=== PATIENT | male | born 1945 | race Caucasian/White ===

== ENCOUNTER 2017-12-09 21:58 | Inpatient (IN) | payer MEDICARE ==
[~2017-12-09] VITALS: Ht 165.1 cm; Wt 96.1 kg
--- NOTE | ~2017-12-09 | EC ---
PATIENT:KARL MARIANO DATE OF SERVICE: 12/09/17 SEX: M MEDICAL RECORD: [id number] DATE OF : 41 LOCATION:D.M2 D.211 AGE OF PATIENT: 72 ADMISSION DATE: 12/09/17 REFERRING PHYSICIAN: INTERPRETING PHYSICIAN: CATARINA MILLER MD ECHOCARDIOGRAM REPORT ECHO CHARGES 4 ECHO COMPLETE Date: 12/10/17 CLINICAL DIAGNOSIS: NONSTEMI ECHOCARDIOGRAPHIC MEASUREMENTS (adult normal given) AC root (d.<3.7cm) 2.7 cm LV Septum d (<1.2 cm> 1.4 cm Valve Excursion 0.8 cm LV Septum (systole) 1.8 cm Left Atria (s.<4.0cm> 4.2 cm LVPW d(<1.2cm) 0.7 cm RV (d.<2.3cm) 2.9 cm LVPW (sytole) 0.9 cm LV diastole(<5.6CM) 5.2 cm MV E-F(>70mm/sec) cm LV systole 4.0 cm LVOT Diameter 1.5 cm MV exc.(>10mm) cm Est.ejection fraction (50-75%) % DOPPLER: LVIT cm/sec A 116 cm/sec E 116 cm/sec LA cm/sec RVSP 43.6 mmHg LVOT 71 cm/sec AOP1/2T m/s Asc. Ao 323 cm/sec RVOT 54 cm/sec RA cm/sec PA 67 cm/sec AV Gradient Peak 41.8 mmHg AV Mean 33.5 mmHg AV Area 0.3 cm MV Gradient Peak 7.2 mmHg MV Mean 3.7 mmHg MV Area cm COMMENTS: Commercial Census Taker: Babs [facility] Backside Grinder: 1 Dr. Miller TAPE# PACS Pericardial Effusion N DATE OF SERVICE: 12/10/2017 PROCEDURE: Echocardiogram. FINDINGS: 1. Left ventricular chamber size is within normal limits. Left ventricular systolic function is normal. Overall ejection fraction estimated at 50%. 2. Left atrium is enlarged at 4.2 cm. Right atrium and right ventricular chamber sizes are within normal limits. 3. Valvular structures have normal structure and motion. ECHOCARDIOGRAM REPORT [id number] KARL MARIANO 4. Doppler interrogation reveals mild mitral regurgitation, [id number] tricuspid regurgitation, no other valvular insufficiency or stenosis. Pulmonary systolic pressure is estimated at 44 mmHg. 5. No evidence of pericardial effusion or left ventricular thrombus. TRANSINT:[id number] Voice Confirmation ID: [id number] DOCUMENT ID: [id number] CATARINA MILLER MD at 1059 CC: [id number] DICTATION DATE: 12/10/171840 RECOVERY ADVOCATE: 12/10/172052 DIS IN 12/12/[address] [facility] [address] [id number]
--- NOTE | ~2017-12-09 | MORECARE ---
CASE MANAGEMENT DISCHARGE SUMMARY PATIENT: KARL MARIANO UNIT: [id number] ADM DATE: 12/09/17 AGE: 72 : 43 SEX: M ROOM/BED: D.6710 AUTHOR: MARY,DOC PHYSICIAN: REFERRING PHYSICIAN: CATARINA CEVALLOS MD DATE OF SERVICE: 12/13/17 Discharge Plan Patient Name: KARL MARIANO [facility]:[place] : 1945 Planned Disposition: Home Anticipated Discharge Date: 12/12/17 Discharge Date: 12/12/2017 Expected LOS: 3 Initial Reviewer: [email or web address] Initial Review Date: 12/11/2017 Generated: 12/13/17 12:32 pm Comments DCP- Discharge Planning Updated by [email or web address]: Abimbola Peterson on 12/11/17 7:[address] Patient Name: KARL MARIANO Admission Status: ER Accout number: [id number] Admission Date: 12-09-2017 : 1945 Admission Diagnosis: Attending: JENNIFER CEVALLOS Current LOS: 2 Anticipated DC Date: 12-13-2017 Planned Disposition: Home Primary Insurance: MEDICARE A & B Discharge Planning Comments: CM MET WITH PATIENT AND (LOLITA) REGARDING D/C NEEDS AND PLANS. NURSE WAS ATTENDING PATIENT AND CM SPOKE WITH . STATED SHE WILL DRIVE HIM HOME AT DISCHARGE. THERE ARE 3 STEPS TO ENTER HOME WITH A HANDRAIL AND A SMALL STEPDOWN IN THE HOME. PATIENT IS INDEPENDENT WITH HIS CARE AND HAS A GLUCOMETER AND BP MACHINE AT HOME. PATIENTS PCP IS DR. DORA ALONZO IN [place] AND PHARMACY IS [facility]. HOME HEALTH WAS REFUSED AT THIS TIME BUT STATED IF PATIENTS CONDITION CHANGED SHE WOULD NOTIFY CM FOR HOME HEALTH NEEDS. CM WILL CONTINUE TO FOLLOW PATIENT WITH D/C NEEDS AND PLANS. IMM SERVED PCP DR. DORA ALONZO [facility] LOLITA MARIANO () [phone] Drupal Php Developer: Abimbola Peterson DCPIA - Discharge Planning Initial Assessment Updated by [email or web address]: Abimbola Peterson on 12/11/17 8:24 am * Is the patient Alert and Oriented? Yes * How many steps to enter\exit or inside your home? * PCP DR. DORA ALONZO IN [place] * Pharmacy [facility] * Preadmission Environment Other * Other Environment WAS WITH FRIENDS PER (MEN TRIP) * ADLs Independent * Equipment Glucometer * Other Equipment BP MACHINE * List name and contact numbers for known caregivers / representatives who currently or will assist patient after discharge: LOLITA MARIANO () [phone] (CELL) * Verbal permission to speak to the caregivers and representatives has been obtained from the patient. Yes * Community resources currently utilized None * Additional services required to return to the preadmission environment? Yes * Can the patient safely return to the preadmission environment? Yes * Has this patient been hospitalized within the prior 30 days at any hospital? No Coverage Notice Reviewer: [email or web address] Xmiena Peterson Notice Issued Date-Time: 12/11/2017 7:56 Notice Type: IM Discharge Notice Notice Delivered To: Family Member Relationship to Patient: Spouse [employer] Supervisor Name: LOLITA MARIANO Delivery Method: HAND - Hand Delivered Vesna Days: Prior Verbal Notification: Recipient Understood Notice: Yes Recipient Signature: Yes Med Rec Note Co-signed by Attending: Coverage Notice Comment: Last DP export: 12/11/17 7:31 a Patient Name: KARL MARIANO Page 81577 at 1133 All edits/amendments must be made on the electronic document DICTATION DATE: 12/13/171131 PIG HANDLER: KARISHMA 12/13/171131 RPT#: [id number] DC DATE:12/12/17 STATUS: DIS IN [facility] [address] [place] [address] END OF REPORT
--- NOTE | ~2017-12-09 | HEMODYNAMI ---
PATIENT:KARL MARIANO MEDICAL RECORD: [id number] : [birth year] LOCATION:[facility] [place] [address] [id number] ADMISSION DATE: 12/09/17 Generatedon:12/11/201710:09 Patient name: KARL MARIANO Patient #: [id number] SSN: : 1945 Date of study: 12/11/2017 Page: Of Hemodynamic Procedure Report Patient Data Patient Demographics Procedure consent was obtained First Name: KARL Gender: Male Last Name: GARCÍA : 1945 Patient #: [id number] Age: 72 year(s) Race: Unknown Additional ID: [id number] Contact details Address: [address] [place] [address] State: [facility]: [place] Zip code: [address] Past Medical History Allergies: No known allergies Admission Admission Data Admission Date: 12/09/2017 Admission Time: 23:56 Admit Source: Other Room #: D.[facility] Lab Results Lab Result Date: 12/09/2017 Lab Result Time: 22:33 Biochemistry Name Units Result Min Max BUN mg/dl 44 --(----)-* 7 18 Creatinine mg/dl 2.6 --(----)-* 0.6 1.3 CBC Name Units Result Min Max Hematocrit % 34.9 *-(----)-- 42 54 Hemoglobin g/dl 11.9 *-(----)-- 13.5 17.5 Procedure Procedure Types Cath Procedure Diagnostic Procedure LHC Coronaries only FFR/IVUS Intra-Coronary IVUS Initial Sedation Charges Moderate Sedation up to 15 minutes PCI Procedure Coronary Stent Coronary Stent Initial x2 Procedure Description Procedure Date Procedure Date: 12/11/2017 Procedure Start Time: 9:47 Procedure End Time: 10:08 Procedure Staff Name Function Cristiano Miller MD Performing Physician Mark Conner RT Monitor Diya Encinas RT Scrub Nico Saavedra RN Gas Scrubber Operator Janet Mcintosh RN Nurse Procedure Data Cath Procedure Fluoroscopy Diagnostic fluoroscopy Total fluoroscopy Time: 5.5 time: 5.5 min min Diagnostic fluoroscopy Total fluoroscopy dose: 692 dose: 692 mGy mGy Contrast Material Contrast Material Type Amount (ml) Isovue 300 48 Entry Location Entry Primary Successful Side Size Upsize Upsize Entry Closure Succes sful Closure Location (Fr) 1 (Fr) 2 (Fr) Remarks Device Remarks Femoral Right 5 Fr 6 Fr Exoseal artery Short Estimated blood loss: 10 ml Diagnostic catheters Device Type Used For End Catheter Placement MULTIPACK JL 4.0 5Fr Procedure catheter MULTIPACK 3DRC 5Fr Procedure catheter MULTIPACK Pigtail 5 Fr Procedure catheter Procedure Complications No complications Procedure Medications Medication Administration Route Dosage 0.9% NaCl I.V. 100 ml/hr Oxygen etCO2 Nasal cannula 2 l/min Lidocaine 2% added to field 20 Heparin Flush Bag added to field 2 bags (1000units/500ml NS) Plavix P.O. 75 mg Versed I.V. 2 mg Fentanyl I.V. 50 mcg Heparin Bolus I.V. 4000 units Hemodynamics Rest HGB: 11.9 (g/dl) Heart Rate: 97 (bpm) Snapshots Pre Cath Intra NCS Post Cath Vital Signs Time Heart Resp SPO2 etCO2 NIBP Rhythm Pain Sedation Rate (ipm) (%) (mmHg) (mmHg) Status Level (bpm) 9:17:56 107 14 93 30 108/73(86) ST 0 (11) 10(A) , No pain 9:22:04 103 14 96 22.5 120/76(99) ST 0 (11) 10(A) , No pain 9:26:16 99 22 92 31.5 104/68(82) NSR 0 (11) 10(A) , No pain 9:30:26 97 21 94 31.5 107/67(83) NSR 0 (11) 10(A) , No pain 9:34:34 97 22 94 27 104/66(82) NSR 0 (11) 10(A) , No pain 9:38:44 97 22 94 14.2 105/65(81) NSR 0 (11) 10(A) , No pain 9:42:53 97 21 95 27 100/62(80) NSR 0 (11) 10(A) , No pain 9:47:01 101 26 96 32.3 104/69(86) ST 0 (11) 9(A) , No pain 9:51:11 100 23 96 33 107/67(82) NSR 0 (11) 9(A) , No pain 9:55:23 98 21 95 22.5 102/61(79) NSR 0 (11) 9(A) , No pain 9:59:33 99 21 96 33 109/67(83) NSR 0 (11) 9(A) , No pain 10:03:43 100 23 98 33.8 111/70(89) NSR 0 (11) 10(A) , No pain 10:07:53 107 26 98 27 119/74(93) NSR 0 (11) 10(A) , No pain Medications Time Medication Route Dose Verified Delivered Reason Notes Effectiveness by by 9:23:48 0.9% NaCl I.V. 100 Cristiano Janet used for ml/hr Angela Mcintosh stonemason helper 9:23:55 Oxygen etCO2 2 Cristiano Janet used for Nasal l/min Angela Mcintosh procedure cannula RN 9:24:00 Lidocaine 2% added 20ml Cristiano Cristiano for local to vial Angela Miller MD anesthetic field 9:24:05 Heparin Flush added 2 Cristiano Cristiano used for Bag to bags Angela Miller MD procedure (1000units/500ml field NS) 9:24:14 Plavix P.O. 75 mg Cristiano Janet for Angela Mcintosh antiplatelet RN therapy 9:43:32 Versed I.V. 2 mg Cristiano Janet for sedation Angela Mcintosh RN 9:43:39 Fentanyl I.V. 50 Cristiano Janet for sedation mcg Angela Mcintosh RN 9:51:26 Heparin Bolus I.V. 4000 Cristiano Janet for verifi ed units Angela Mcintosh anticoagulation with Dr. MEL Miller Procedure Log Time Note 9:06:26 Informed consent obtained and on chart 9:06:29 Admit Source: Other 9:06:46 Diagnostic Cath status Elective 9:06:48 Nico Saavedra RN sent for patient. Start room use. 9:06:49 Time tracking: Regular hours (M-F 7:00 - 5:00) 9:06:52 Plan of Care:Hemodynamics will remain stable., Cardiac rhythm will remain stable., Comfort level will be maintained., Respiratory function will remain adequate., Patient/ family verbilizes understanding of procedure., Procedure tolerated without complication., Recovers from procedure without complications.. 9:09:45 H&P Date Dictated: 12/09/2017 Within 30 days and on chart.. 9:11:20 Lab Result : BUN 44 mg/dl 9::20 Lab Result : Creatinine 2.6 mg/dl 9::20 Lab Result : Hematocrit 34.9 % 9::20 Lab Result : Hemoglobin 11.9 g/dl 9:11:23 Lab results completed and on chart. 9:11:29 Patient allergic to No known allergies 9:11:35 Patient received from Med II to CCL 1 Alert and oriented. Tansferred to table in Supine position. 9:11:36 Warm blankets applied, and blayne hugger turned on for patient comfort. 9:11:36 Correct patient and procedure confirmed by team. 9:11:37 ECG and BP/O2 sat monitors applied to patient. 9:11:38 Pre-procedure instructions explained to patient. 9:11:38 Pre-op teaching completed and patient verbalized understanding. 9:16:50 Vital chart was started 9:23:48 0.9% NaCl 100 ml/hr I.V. was administered by Janet Mcintosh RN; used for procedure; 9:23:55 Oxygen 2 l/min etCO2 Nasal cannula was administered by Janet Mcintosh RN; used for procedure; 9:24:00 Lidocaine 2% 20ml vial added to field was administered by Cristiano Miller MD; for local anesthetic; 9:24:05 Heparin Flush Bag (1000units/500ml NS) 2 bags added to field was administered by Cristiano Miller MD; used for procedure; 9:24:14 Plavix 75 mg P.O. was administered by Janet Mcintosh RN; for antiplatelet therapy; 9:28:44 Baseline sample Acquired. 9:28:49 Rhythm: sinus tachycardia 9:28:50 Full Disclosure recording started 9:29:00 Family in patients room. 9:29:02 Patient NPO since Midnight. 9:29:05 Is the patient allergic to Iodine/contrast media? No. 9:29:06 Is patient on blood thinner?Yes 9:29:09 ACC The patient was administered the following blood thiners within the last 24 hours: ACCPlavix 9:29:11 Patient diabetic? Yes. 9:29:12 If diabetic: On Metformin? Yes 9:29:14 If on Metformin: Last Dose? 12/08/2017 9:29:18 Previous problem with sedation/anesthesia? No ? 9:31:57 Snore? Yes 9:31:58 Sleep apnea? No 9:31:59 Deviated septum? No 9:31:59 Opens mouth fully? Yes 9:32:00 Sticks out tongue? Yes 9:32:02 Airway obstruction? No ? 9:32:04 Dentures? Yes out 9:32:08 Pre procedure: right dorsailis pedis pulse 2+ Normal; easily identifiable; not easily obliterated 9:32:12 IV patent on arrival in right antecubital with 0.9% NaCl at [facility]. 9:32:17 Right groin area was prepped with chlora-prep and draped in sterile fashion 9:32:18 Alarms reviewed by R. N. 9:32:18 Sharps counted by scrub and verified by R.N. 9:32:22 Use device set Femoral Dx 9:32:22 ACIST Syringe (67584) opened to sterile field. 9:32:23 Bag Decanter (2002S) opened to sterile field. 9:32:23 Medline Cath Pack ([id number]) opened to sterile field. 9:32:24 ACIST Hand Control (84589) opened to sterile field. 9:32:25 ACIST Manifold (69567) opened to sterile field. 9:32:26 Tegaderm 4 x 4 (1626W) opened to sterile field. 9:32:27 SHEATH Prelude 5Fr 0.035 (NIV-1U-18-035) opened to sterile field. 9:32:28 DIAGNOSTIC WIRE .035 260cm J wire (676045) opened to sterile field. 9:32:29 DIAGNOSTIC Multipack 5Fr catheter set (CD7173) opened to sterile field. 9:33:19 Zero performed for pressure channel P1 9:43:07 Physician arrived 9:43:07 --------ALL STOP TIME OUT------ 9:43:08 Final Timeout: patient, procedure, and site verified with staff and physician. All members of the team are in agreement. 9:43:10 Right groin site verified by team. 9:43:12 Physical assessment completed. ASA score P 3 - A patient with severe systemic disease as per Cristiano Miller MD. 9:43:16 Sedation plan: IV Moderate Sedation Medication:Versed, Fentanyl 9:43:32 Versed 2 mg I.V. was administered by Janet Mcintosh RN; for sedation; 9:43:39 Fentanyl 50 mcg I.V. was administered by Janet Mcintosh RN; for sedation; 9:47:09 Procedure started. 9:47:13 Local anesthetic to right femoral artery with Lidocaine 2% by Cristiano Miller MD.INITIAL ACCESS ONLY 9:47:52 A 5 Fr sheath was inserted into the Right Femoral artery 9:48:10 A MULTIPACK JL 4.0 5Fr catheter was advanced over the wire and used for Procedure. 9:48:12 LCA angiography performed. 9:49:04 Catheter exchanged over wire. 9:49:10 A MULTIPACK 3DRC 5Fr catheter was advanced over the wire and used for Procedure. 9:49:24 SHEATH 6FR [place] (ZYZ164) opened to sterile field. 9:49:25 INFLATOR Merit BasixCompak (YQ4043) opened to sterile field. 9:49:34 CHOICE PT Extra Support 182cm wire ([id number]) opened to sterile field. 9:49:39 RCA angiography performed. 9:50:23 [place] IVUS Catheter (96952V) opened to sterile field. 9:50:29 GUIDE 6FR XBLAD 3.5 catheter ([id number]) opened to sterile field. 9:51:26 Heparin Bolus 4000 units I.V. was administered by Janet Mcintosh RN; for anticoagulation; verified with Dr. Miller 9:51:32 Catheter removed. 9:51:38 Sheath upsized to a 6 Fr Short. 9:51:44 6 Fr xblad 3.5 guide catheter was inserted over the wire 9:53:37 choice pt es wire advanced. 9:53:38 Wire advanced across lesion. 9:53:50 IVUS catheter advanced over wire. 9:53:51 IVUS pass to LAD lesion performed. 9:54:23 IVUS catheter removed over wire. 9:56:33 Place stent Inflation Number: 1 A DUSTIN RX 3.0 x 38 stent ([id number]) was prepped and advanced across the Prox LAD. The stent was deployed at 13 ERIN for 0:10 (min:sec). 9:56:53 Stent catheter was removed intact over wire. 9:57:02 Wire redirected to cx. 9:57:50 Wire advanced across lesion. 9:59:06 Place stent Inflation Number: 1 A DUSTIN RX 2.5 x 22 stent ([id number]) was prepped and advanced across the Mid CX. The stent was deployed at 13 ERIN for 0:10 (min:sec). 9:59:18 Stent catheter was removed intact over wire. 9:59:18 Wire removed. 9:59:19 Guide catheter removed. 9:59:25 A MULTIPACK Pigtail 5 Fr catheter was advanced over the wire and used for Procedure. 10:01:33 Catheter removed, unable to cross valve. 10:01:44 Sheath removed intact; hemostasis achieved with Exoseal to the Right Femoral artery. 10:01:45 Procedure ended.(Physican Out) 10:02:41 Fluoroscopy time 05.50 minutes. 10:02:45 Fluoroscopy dose: 692 mGy 10:02:45 Flurop Dose total: 692 10:03:03 Contrast amount:Isovue 300 48ml. 10:03:04 Sharps counted by scrub and verified by R.N. 10:03:06 Insertion/operative site no bleeding no hematoma. 10:03:29 Post-op/insertion site Right Femoral artery dressed using a 4 x 4 and Tegaderm. 10:03:32 Post right femoral artery:stable, soft, clean and dry 10:03:36 Post-procedure physical assessment completed. ASA score P 3 - A patient with severe systemic disease as per Cristiano Miller MD. 10:03:38 Post procedure rhythm: unchanged. 10:03:58 Estimated blood loss: 10 ml 10:03:59 Post procedure instruction explained to patient.Patient verbalizes understanding. 10:03:59 Patient needs reinforcement of post procedure teaching. 10:06:58 Procedure type changed to Cath procedure, Diagnostic procedure, LHC, Coronaries only, FFR/IVUS, Intra-Coronary IVUS Initial, Sedation Charges, Moderate Sedation up to 15 minutes, PCI procedure, Coronary Stent, Coronary Stent Initial x2 10:08:05 Procedure and supply charges have been captured, reviewed, submitted and are correct. 10:08:07 Procedure Complication : No complications 10:08:09 Vital chart was stopped 10:08:09 See physician's report for complete and final results. 10:08:10 Report given to PCU. 10:08:13 Patient transfered to PCU with Stretcher. 10:08:15 Procedure ended. 10:08:15 Full Disclosure recording stopped 10:08:18 End room use (Document Last) Intervention Summary Intervention Notes Time ActionType Lesion and Equipment Used Action# Pressure Duration Attributes 9:56:33 Place stent Prox LAD DUSTIN RX 3.0 x 1 13 00:10 38 stent ([id number]) 9:59:06 Place stent Mid CX DUSTIN RX 2.5 x 1 13 00:10 22 stent ([id number]) Device Usage Item Name Manufacture Quantity Catalog Number Hospital Part Current Minimal Lot# / Charge Number Stock Stock Serial# Code ACIST Syringe Acist 1 79876 137290 687526 293215 20 (86965) Medical Systems Inc Bag Decanter Microtek 1 2001S 583379 93796 241873 5 (2001S) Medical Inc. Medline Cath Medline 1 [id number] 680104 78604 566932 5 Pack ([id number]) ACIST Hand Acist 1 30366 600458 672543 586623 5 Control (89768) Medical Systems Inc ACIST Manifold Acist 1 65699 987173 028413 395684 5 (62734) Medical Systems Inc Tegaderm 4 x 4 3M 1 1626W 772482 205331 033844 5 (1626W) SHEATH Prelude Merit 1 OFG-2H-35-035 215053 264838 254427 5 5Fr 0.035 Medical (MIK-1D-66-035) DIAGNOSTIC WIRE [facility] 1 153050 794241 434674 493203 30 .035 260cm J wire (582184) DIAGNOSTIC Cardinal 1 NP2221 206209 52370 353784 30 Multipack 5Fr Health catheter set (FO5748) MULTIPACK JL Cardinal 1 139454 5 4.0 5Fr Health catheter MULTIPACK 3DRC Cardinal 1 818924 5 5Fr catheter Health SHEATH 6FR Terumo 1 XPZ554 929622 743168 969819 40 [place] (HTN821) INFLATOR Merit Merit 1 WR4532 421151 819995 081113 15 [facility] (NV1824) CHOICE PT Extra [place] 1 [id number] 478654 331097 876554 5 Support 182cm Scientific wire ([id number]) [place] 1 21934E 706652 610296 855177 8 [place] IVUS Catheter (43868U) GUIDE 6FR XBLAD Cardinal 1 [id number] 739576 532280 497819 10 3.5 catheter Health (53844802) DUSTIN RX 3.0 x Medtronic 1 [id number] 301992 8508627 110669 5 [id number] 38 stent ([id number]) DUSTIN RX 2.5 x Medtronic 1 [id number] 182104 6796594 418646 5 [id number] 22 stent ([id number]) MULTIPACK Cardinal 1 445882 5 Pigtail 5 Fr Health catheter Signature Audit [place] Stage Time Signature Unsigned Intra-Procedure 12/11/2017 Mark Conner 10:09:27 AM RT(R) Signatures Monitor : Mark Conner RT Signature : Date : Time : [id number] [place] [address]
--- NOTE | ~2017-12-09 | MORECARE ---
CASE MANAGEMENT DISCHARGE SUMMARY PATIENT: KARL MARIANO UNIT: [id number] ADM DATE: 12/09/17 AGE: 72 : 43 SEX: M ROOM/BED: D.2118 AUTHOR: ALMA HERNANDEZ PHYSICIAN: REFERRING PHYSICIAN: CATARINA CEVALLOS MD DATE OF SERVICE: 12/11/17 Discharge Plan Patient Name: KARL MARIANO [facility] [facility] 1945 Planned Disposition: Home Anticipated Discharge Date: 12/13/17 Discharge Date: Expected LOS: 4 Initial Reviewer: [email or web address] Initial Review Date: 12/11/2017 Generated: 12/11/17 9:24 am Patient Name: KARL MARIANO Page 06170 at 0824 All edits/amendments must be made on the electronic document DICTATION DATE: 12/11/17822 ASSESSMENT NURSE: KARISHMA 12/11/17822 RPT#: [id number] DC DATE: STATUS: ADM IN [facility] [address] [place] [address] END OF REPORT
--- NOTE | ~2017-12-09 | OP ---
PATIENT NAME: KARL MARIANO MEDICAL RECORD: [id number] :41 LOCATION:D.M2 D.2118 ADMISSION DATE:12/09/17 SURGEON: CATARINA CEVALLOS MD DATE OF OPERATION: 12/11/2017 PROCEDURES: 1. PTCA and stent, left main. 2. PTCA stent left circumflex. 3. Left heart catheterization. 4. Selective coronary angiography. 5. Intravascular ultrasound. INDICATION: Angina and coronary artery disease. PROCEDURE IN DETAIL: After informed consent was obtained and after a detailed description of risks, benefits as well as alternative therapies, the patient elected to proceed with angiogram and angioplasty. The right femoral area was prepped and draped in normal sterile fashion. Right femoral artery was cannulated via modified Seldinger technique with placement of 6-Lithuanian sheath. All catheters exchanged through this sheath. FINDINGS: Left ventriculogram was not performed secondary to dye conservation and renal insufficiency. SELECTIVE CORONARY ANGIOGRAPHY: 1. Left main has greater than 80% stenosis proximally confirmed by intravascular ultrasound. 2. Left anterior descending his mild irregularities, but no flow-limiting stenosis. 3. Left circumflex has 80% stenosis in the mid vessel. 4. Right coronary is small, nondominant. PTCA STENT OF THE LEFT MAIN AND CIRCUMFLEX: The left main was addressed with a 3.0 x 38 mm [place], the circumflex with a 2.5 x 22 mm [place]. RESULT was 0% residual stenosis. OVERALL IMPRESSION: Successful PTCA and stent of the left main and circumflex, both going from 80% initial stenosis to 0% residual. TRANSINT:[id number] Voice Confirmation ID: [id number] DOCUMENT ID: [id number] CATARINA CEVALLOS MD at 1059 CC: [id number] DICTATION DATE: 12/11/17 1007 BRASS POLISHER: 12/11/17 1115 DIS IN 12/12/17 [place] [address]
--- NOTE | ~2017-12-09 | DS ---
PATIENT:KARL DEGROOT :41 MEDICAL RECORD: [id number] DISCHARGE SUMMARY ADMISSION DATE: 12/09/17 DISCHARGE DATE: 12/12/17 DISCHARGE DIAGNOSES: 1. Angina. 2. PTCA and stent of LAD and circumflex this admission. 3. Bronchitis. HOSPITAL COURSE: Mr. Degroot presents with shortness of breath and chest pain, found to have 2-vessel coronary artery disease of the LAD and circumflex. Underwent successful PTCA and stent of the LAD and circumflex. Also found to have bronchitis, which was treated with IV antibiotics, changing to Augmentin. Discharge home on Plavix, aspirin, and Augmentin along with his current medications. Will follow up with his utilization supervisor in [place], [place]. TRANSINT:[id number] Voice Confirmation ID: [id number] DOCUMENT ID: [id number] CATARINA CEVALLOS MD at 1059 CC: [id number] DICTATION DATE: 12/12/17 1007 TRANSCRIBING MACHINE MECHANIC: 12/13/17 0005 DIS IN 12/12/[address] [address]
--- NOTE | ~2017-12-09 | MORECARE ---
CASE MANAGEMENT DISCHARGE SUMMARY PATIENT: KARL MARIANO UNIT: [id number] ADM DATE: 12/09/17 AGE: 72 : 41 SEX: M ROOM/BED: D.5442 AUTHOR: MARY,DOC PHYSICIAN: REFERRING PHYSICIAN: CATARINA CEVALLOS MD DATE OF SERVICE: 12/11/17 Discharge Plan Patient Name: KARL MARIANO Facility: [facility]:[place] : 1945 Planned Disposition: Home Anticipated Discharge Date: 12/13/17 Discharge Date: Expected LOS: 4 Initial Reviewer: [id number] Initial Review Date: 12/11/2017 Generated: 12/11/17 9:31 am Comments DCP- Discharge Planning Updated by [email or web address]: Abimbola Peterson on 12/11/17 7:[address] Patient Name: KARL MARIANO Admission Status: ER Accout number: [id number] Admission Date: 12-09-2017 : 1945 Admission Diagnosis: Attending: JENNIFER CEVALLOS Current LOS: 2 Anticipated DC Date: 12-13-2017 Planned Disposition: Home Primary Insurance: MEDICARE A & B Discharge Planning Comments: CM MET WITH PATIENT AND (LOLITA) REGARDING D/C NEEDS AND PLANS. NURSE WAS ATTENDING PATIENT AND CM SPOKE WITH . STATED SHE WILL DRIVE HIM HOME AT DISCHARGE. THERE ARE 3 STEPS TO ENTER HOME WITH A HANDRAIL AND A SMALL STEPDOWN IN THE HOME. PATIENT IS INDEPENDENT WITH HIS CARE AND HAS A GLUCOMETER AND BP MACHINE AT HOME. PATIENTS PCP IS DR. DORA ALONZO IN [place] AND PHARMACY IS [facility]. HOME HEALTH WAS REFUSED AT THIS TIME BUT STATED IF PATIENTS CONDITION CHANGED SHE WOULD NOTIFY CM FOR HOME HEALTH NEEDS. CM WILL CONTINUE TO FOLLOW PATIENT WITH D/C NEEDS AND PLANS. IMM SERVED PCP DR. DORA ALONZO [facility] LOLITA MARIANO () [phone] Installer: Abimbola Peterson DCPIA - Discharge Planning Initial Assessment Updated by [email or web address]: Abimbola Peterson on 12/11/17 8:24 am * Is the patient Alert and Oriented? Yes * How many steps to enter\exit or inside your home? * PCP DR. DORA ALONZO IN [place] * Pharmacy [facility] * Preadmission Environment Other * Other Environment WAS WITH FRIENDS PER (MEN TRIP) * ADLs Independent * Equipment Glucometer * Other Equipment BP MACHINE * List name and contact numbers for known caregivers / representatives who currently or will assist patient after discharge: LOLITA MARIANO () [phone] (CELL) * Verbal permission to speak to the caregivers and representatives has been obtained from the patient. Yes * Community resources currently utilized None * Additional services required to return to the preadmission environment? Yes * Can the patient safely return to the preadmission environment? Yes * Has this patient been hospitalized within the prior 30 days at any hospital? No Coverage Notice Reviewer: [id number] Ximena Peterson Notice Issued Date-Time: 12/11/2017 7:56 Notice Type: IM Discharge Notice Notice Delivered To: Family Member Relationship to Patient: Spouse Meter Tester Name: LOLITA MARIANO Delivery Method: HAND - Hand Delivered Vesna Days: Prior Verbal Notification: Recipient Understood Notice: Yes Recipient Signature: Yes Med Rec Note Co-signed by Attending: Coverage Notice Comment: Last DP export: 12/11/17 7:24 a Patient Name: KARL MARIANO Page [id number] at 0831 All edits/amendments must be made on the electronic document DICTATION DATE: 12/11/17829 [employer]PUTER NETWORK [employer] SYSTEM[employer] ENGINEER: KARISHMA 12/11/17829 RPT#: [id number] DC DATE: STATUS: ADM IN [facility] [address] [place] [address] END OF REPORT
[2017-12-09] MEDS ORDERED: TRESIBA FL100 UNIT/1 SC (22:08)
[2017-12-09] MEDS ORDERED: GLUCOPHAGE XR750 MG PO (22:09)
[2017-12-09] MEDS ORDERED: TIAZAC/CARDIZE240 M1 PO (22:09)
[2017-12-09] MEDS ORDERED: NOVOLOG100 UNIT/1 SQ (22:09)
[2017-12-09] MEDS ORDERED: NEURONTIN600 MG (22:10)
[2017-12-09] MEDS ORDERED: UNITHROID50 MCG PO (22:10)
[2017-12-09] MEDS ORDERED: ZESTRIL40 MG PO (22:10)
[2017-12-09 22:35] VITALS: BP 115/63
[2017-12-09 22:59] LABS: APTT 35.3 SECONDS (22.8-39.4); INR 1.3 (0.85-1.17); PROTIME 15.7 SECONDS (11.6-15.0)
[2017-12-09 23:00] VITALS: BP 115/69
[2017-12-09 23:05] LABS: ALKALINE PHOSPHATASE 101 U/L (46-116); ALT (SGPT) 20 U/L (10-68); BILIRUBIN - TOTAL 0.53 mg/dL (0.2-1.3); CALC OSMOLALITY 284 mosm/kg (275-300); CALCIUM 8.9 mg/dL (8.5-10.1); CARBON DIOXIDE 23.5 mmol/L (21.0-32.0); CHLORIDE - SERUM 99 mmol/L (98-107); CREATININE - SERUM 2.6 mg/dL (0.6-1.3); GLUCOSE 234 mg/dL (74-106); POTASSIUM - SERUM 5.7 mmol/L (3.5-5.1); PROTEIN - SERUM 7.4 g/dL (6.4-8.2); SODIUM 133 mmol/L (136-145); UREA NITROGEN 44 mg/dL (7-18); eGFR NON AFRICAN AMERICAN 26 mL/min (90-120)
[2017-12-09 23:10] LABS: BASOPHILS 0.2 % (0-2); EOSINOPHILS 0.2 % (0-7); HEMATOCRIT 34.9 % (42.0-54.0); HEMOGLOBIN 11.9 g/dL (13.5-17.5); IMMATURE GRANULOCYTES 0.2 % (0-5); LYMPHOCYTES 8.4 % (15-50); MCH 32.6 pg (26.0-34.0); MCHC 34.1 g/dL (31.0-37.0); MCV 95.6 fL (80.0-100.0); MEAN PLATELET VOLUME 9.1 fL (7.4-10.4); PLATELET COUNT 274 10x3/uL (130-400); RBC 3.65 10x6/uL (4.20-6.10); RDW 13.4 % (11.5-14.5)
[2017-12-09 23:21] LABS: CKMB 13.6 U/L (0.0-3.6); CREATINE KINASE 409 UL (21-232); PRO BNP 2019 pg/mL (0-125)
[2017-12-09 23:23] LABS: TROPONIN-I 5.859 ng/mL (0.000-0.060)
[2017-12-09 23:43] VITALS: BP 105/56
[2017-12-10] VITALS (7 sets, daily range): BP systolic 86–100; BP diastolic 33–56; Ht 165.1 cm; Wt 96.1 kg
[2017-12-10 16:48] LABS: APPEARANCE CLEAR (CLEAR); COLOR YELLOW (YELLOW); SPECIFIC GRAVITY 1.015 (1.005-1.020)
[2017-12-10 16:51] LABS: BILIRUBIN NEGATIVE (NEGATIVE); GLUCOSE NEGATIVE (NEGATIVE); KETONE NEGATIVE (NEGATIVE); NITRITE NEGATIVE (NEGATIVE); PROTEIN NEGATIVE (NEGATIVE); UROBILINOGEN NORMAL (NORMAL)
[2017-12-10 22:24] LABS: APPEARANCE CLEAR (CLEAR); BILIRUBIN NEGATIVE (NEGATIVE); COLOR YELLOW (YELLOW); GLUCOSE NEGATIVE (NEGATIVE); KETONE NEGATIVE (NEGATIVE); NITRITE NEGATIVE (NEGATIVE); PROTEIN NEGATIVE (NEGATIVE); SPECIFIC GRAVITY 1.015 (1.005-1.020); UROBILINOGEN NORMAL (NORMAL)
[2017-12-11 01:29] VITALS: BP 103/55
[2017-12-11 05:44] VITALS: BP 133/67
[2017-12-11 08:13] VITALS: BP 95/44
[2017-12-11 10:23] LABS: ANION GAP 12.5 mmol/L (8-16); CALCIUM 8.1 mg/dL (8.5-10.1); CARBON DIOXIDE 25.4 mmol/L (21.0-32.0); CREATININE - SERUM 2.3 mg/dL (0.6-1.3)
[2017-12-11 10:24] LABS: POTASSIUM - SERUM 3.9 mmol/L (3.5-5.1)
[2017-12-11 11:35] VITALS: BP 111/62
[2017-12-11 15:25] VITALS: BP 123/69
[2017-12-11 21:01] VITALS: BP 114/64
[2017-12-12] VITALS: BP 107/56
[2017-12-12 06:11] VITALS: BP 92/50
[2017-12-12 08:30] VITALS: BP 134/73
[2017-12-12] MEDS ORDERED: PLAVIX75 MG PO (10:45)
[2017-12-12] MEDS ORDERED: AMOX TR-K CLV 21 TAB PO (10:46)
[2017-12-12] MEDS ORDERED: ASPIRIN81 MG PO (10:47)
== END 2017-12-12 12:22 | disposition home or self-care (01) | DRG 246 ==
LOC: D.ER 21:58 → EDBD 23:56 → D.M2 23:56
PROVIDERS: Family Medicine; Internal Medicine Interventional Cardiology
PROC: 4A023N7 Measurement of Cardiac Sampling and Pressure, Left Heart, Percutaneous Approach (ICD-10-PCS; 2017-12-11)
PROC: B2111ZZ Fluoroscopy of Multiple Coronary Arteries using Low Osmolar Contrast (ICD-10-PCS; 2017-12-11)
PROC: 027135Z Dilation of Coronary Artery, Two Arteries with Two Drug-eluting Intraluminal Devices, Percutaneous Approach (ICD-10-PCS; principal; 2017-12-11 09:30)
PROC: B240ZZ3 Ultrasonography of Single Coronary Artery, Intravascular (ICD-10-PCS; 2017-12-11 09:30)
DX: I21.4 Non-ST elevation (NSTEMI) myocardial infarction (principal); I50.33 Acute on chronic diastolic (congestive) heart failure; E11.9 Type 2 diabetes mellitus without complications; N28.9 Disorder of kidney and ureter, unspecified; I25.119 Atherosclerotic heart disease of native coronary artery with unspecified angina pectoris; E03.9 Hypothyroidism, unspecified; E78.5 Hyperlipidemia, unspecified; J40 Bronchitis, not specified as acute or chronic; Z87.891 Personal history of nicotine dependence; I11.0 Hypertensive heart disease with heart failure